=== PATIENT | male | born 1985 | race African-American/Black ===

== ENCOUNTER 2020-03-17 06:36 | Day surgery (SDC) | payer OTHER ==
[2020-03-11 14:26] VITALS: BMI 30.5
[2020-03-17] MEDS ORDERED: MIDAZOLAM HCL 2 MG/2 ML SINGLE DOSE VIAL ONE (10:41)
[2020-03-17] MEDS ORDERED: MORPHINE SULFATE 10 MG/1 ML *VIAL ONE (10:42)
[2020-03-17] MEDS ORDERED: PROPOFOL 20 ML ONE ×2 (10:47)
[2020-03-17] MEDS ORDERED: oxyCODONE HCL 5 MG TABLET PO PRN (10:52)
[2020-03-17] MEDS ORDERED: ACETAMINOPHEN 325 MG TABLET (FP) PO PRN (10:52)
[2020-03-17] MEDS ORDERED: ONDANSETRON 4 MG/2 ML VIAL IVPUSH PRN (10:52)
[2020-03-17] MEDS ORDERED: LACTATED RINGERS SOLUTION 1,000 ML IV SCH (11:00)
[2020-03-17] MEDS ORDERED: ONDANSETRON 4 MG/2 ML VIAL ONE (11:09)
[2020-03-17] MEDS ORDERED: DEXAMETHASONE SOD PHOSPHATE 4 MG/1 ML VIAL ONE (11:09)
[2020-03-17] MEDS ORDERED: ceFAZolin SODIUM 1 GM VIAL ONE (11:09)
[2020-03-17] MEDS ORDERED: BUPIVACAINE HCL/PF 0.5% (5 MG/ML) 30 ML VIAL IJ ONE (11:20)
[2020-03-17] MEDS ORDERED: KETOROLAC TROMETHAMINE 30 MG/1 ML VIAL ONE (11:28)
[2020-03-17] MEDS ORDERED: morphine CARPU-JECT 10 MG/1 ML DISP.SYRIN NR ONE (11:30)
--- NOTE | 2020-03-17 12:26 | OP ---
DATE OF OPERATION: 03/17/2020 PREOPERATIVE DIAGNOSES: 1. Stiffness to the right knee. 2. Torn meniscus to the right knee. POSTOPERATIVE DIAGNOSES: 1. Stiffness to the right knee with adhesions. 2. Torn meniscus to the right knee. 3. Chondral fissuring, chondromalacia, right knee. 4. Extensive joint debris. 5. 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 6. Loose body to the right knee. PROCEDURE: 1. Gentle slow manipulation of the right knee under anesthesia with lysis and resection of adhesions to the right knee. 2. Meniscectomy, right knee. 3. Chondral shaving, chondroplasty, right knee. 4. Extensive joint debridement. 5. Extensive hypertrophic synovectomy, right knee. 6. Removal of loose body, right knee. 7. Plastic surgical closure to the right knee. SURGEON: Kinjal Holm MD MIXING TUMBLER OPERATOR: KRISTIN Callahan ANESTHESIA: Darren Tirado DO TYPE OF ANESTHESIA: General anesthesia. PROCEDURE: The procedure consisted of the patient being brought into the operating room and gently transferred from the stretcher to the OR table with all bony prominences well padded. The right leg was prepared and draped in a sterile fashion. The patient was given intravenous antibiotics and copious irrigation throughout the procedure to minimize risk for infection. A complete risk, benefit, alternative discussion was conducted with the patient which was inclusive but not limited to infection, bleeding, , paralysis, increased pain, need for repeat surgery. Patient asked questions, understood the procedure and desired to proceed with surgical treatment. An appropriate time out was conducted. Following sterile preparation and draping the right leg, the leg was exsanguinated using a rubber Esmarch bandage and the tourniquet inflated to 350 mmHg. A gentle manipulation was performed. Examination of the knee demonstrated a 7-degree block to extension with 90 degrees of flexion. Following the gentle slow manipulation full extension was obtained with 120 degrees of flexion. Suprapatellar, medial and lateral joint line portals were used to introduce the arthroscope and arthroscopic instruments. The knee was examined. Adhesions were noted within the joint and these were lysed and resected. There was noted to be hypertrophic synovium in the suprapatellar pouch and extensive hypertrophic synovectomy was performed. Medial and lateral gutters were without plica or loose body. Medial meniscus was found to have a tear of the posterior horn and this was resected using a shaver and radiofrequency wand. Intercondylar region was noted to have joint debris and a joint debridement was performed which was an extensive joint debridement. Anterior and posterior cruciate ligaments were found to be intact. Lateral meniscus was found to have a loose body between the femoral condyle and the tibial plateau and this was grasped and resected using shaver and there was noted to be debris within that side as well and extensive debridement was performed. The lateral meniscus was found also to have a tear of the posterior horn and this was resected using shaver and radiofrequency wand. The inferior surface of the patella had chondral fissuring and this was smoothed using shaver and radiofrequency wand and chondroplasty was performed. The knee joint was then copiously irrigated with sterile saline irrigant. The wounds were closed in a plastic surgical fashion using 4-0 undyed Vicryl followed by Steri-Strips, Xeroform, 4 x 4's, combine, sterile Webril, Willard bandage and knee immobilizer. Tourniquet was deflated after approximately 20 minutes of tourniquet time. There were no intraoperative complications. Williams Quezada was critical for assisting during surgery, holding the arthroscope I used the drill and arthroscopic instruments. He provided critical support and safety in surgical treatment. KINJAL HOLM M.D. [id number] MTDD
[2020-03-17 14:37] VITALS: BP 120/62; PULSE 64; TEMP 98
== END 2020-03-17 13:50 | disposition home or self-care (01) ==
LOC: FASU 06:36
PROVIDERS: ATTEND Orthopaedic Surgery
PROC: 0SBC4ZZ Excision of Right Knee Joint, Percutaneous Endoscopic Approach (ICD-10-PCS; 2020-03-17)
PROC: 0SBC4ZZ Excision of Right Knee Joint, Percutaneous Endoscopic Approach (ICD-10-PCS; 2020-03-17)
PROC: 0SBC4ZZ Excision of Right Knee Joint, Percutaneous Endoscopic Approach (ICD-10-PCS; 2020-03-17)
PROC: 0SBC4ZZ Excision of Right Knee Joint, Percutaneous Endoscopic Approach (ICD-10-PCS; principal; 2020-03-17 11:16)
DX: S83.241A Other tear of medial meniscus, current injury, right knee, initial encounter (principal); S83.281A Other tear of lateral meniscus, current injury, right knee, initial encounter; M25.661 Stiffness of right knee, not elsewhere classified; M23.41 Loose body in knee, right knee; M94.261 Chondromalacia, right knee; M25.861 Other specified joint disorders, right knee; M67.261 Synovial hypertrophy, not elsewhere classified, right lower leg; X58.XXXA Exposure to other specified factors, initial encounter; Y93.9 Activity, unspecified; Y92.9 Unspecified place or not applicable
CPT/HCPCS: 29876; 29880; G0289; 94760